=== PATIENT | male | born 1965 | race Caucasian/White ===

== ENCOUNTER 2020-09-25 06:37 | Emergency (ER) | payer BC, OTHER ==
[2020-09-25 06:55] VITALS: BMI 28.3
[2020-09-25] MEDS ORDERED: FAMOTIDINE 20 MG/50 ML IVPB 20 MG/50 ML MG IVPB ONE ×2 (07:58→09:02)
[2020-09-25] MEDS ORDERED: SODIUM CHLORIDE 0.9% 1000 ML INFUS.BAG IV ONE (07:59)
[2020-09-25] MEDS ORDERED: MAG HYDROX/AL HYDROX/SIMETH -MYLANTA- ORAL SUSPENSION PO ONE (07:59)
[2020-09-25] MEDS ORDERED: ACETAMINOPHEN 500 MG TABLET (FP) PO ONE (07:59)
[2020-09-25 08:26] LABS: BASO % 0.5 % (0-2.0); EOS % 0.3 % (0-4.5); HEMATOCRIT 44.2 % (35.4-49); HEMOGLOBIN 14.9 GM/dL (11.7-16.9); LYMPH % 7.9 % (8-40); MCH 30.6 pg (25.7-33.7); MCHC 33.8 g/dl (32.0-35.9); MEAN CELL VOLUME 90.6 fl (80-96); MEAN PLT VOLUME 8.5 fl (7.5-11.1); MONO % 3.4 % (3.8-10.2); NEUT % 87.9 % (42.8-82.8); PLATELET COUNT 165 10^3/uL (134-434); RBC 4.87 M/mm3 (4.00-5.60); RDW 13.9 % (11.9-15.9); URINE APPEARANCE CLEAR; URINE BILIRUBIN NEGATIVE (NEGATIVE); URINE COLOR YELLOW; URINE GLUCOSE (UA) NEGATIVE (NEGATIVE); URINE KETONE NEGATIVE (NEGATIVE); URINE LEUK ESTERASE NEGATIVE (NEGATIVE); URINE NITRITE NEGATIVE (NEGATIVE); URINE PROTEIN NEGATIVE (NEGATIVE); URINE UROBILINOGEN 0.2 mg/dL (0.2-1.0); WHITE BLOOD COUNT 12.7 K/mm3 (4.0-10.0)
[2020-09-25 08:56] LABS: ALBUMIN 3.9 g/dl (3.4-5.0); BLOOD UREA NITROGEN 19.3 mg/dL (7-18); CALCIUM 9.1 mg/dL (8.5-10.1)
[2020-09-25 08:59] LABS: CREATININE 1.1 mg/dL (0.55-1.3)
[2020-09-25 09:01] LABS: BILIRUBIN,TOTAL 0.6 mg/dL (0.2-1)
[2020-09-25] MEDS ORDERED: MAG HYDROX/AL HYDROX/SIMETH 30 ML UNIT-DOSE CUP ONE (09:01)
[2020-09-25] MEDS ORDERED: ACETAMINOPHEN 325 MG TABLET (FP) ONE (09:01)
[2020-09-25 09:09] VITALS: TEMP 98.6
[2020-09-25 11:32] VITALS: BP 139/89; PULSE 81
== END 2020-09-25 10:40 | disposition home or self-care (01) ==
LOC: JER 06:37
PROC: 3E033GC Introduction of Other Therapeutic Substance into Peripheral Vein, Percutaneous Approach (ICD-10-PCS; principal; 2020-09-25)
DX: N20.0 Calculus of kidney (principal)
CPT/HCPCS: 36415; 74177-TC; 80053; 81003; 83605; 83690; 85025; 87086; 93005; 93010; 99285-25; Q9967